=== PATIENT | female | born 1970 | race Caucasian/White ===

== ENCOUNTER 2018-02-23 03:13 | Emergency (ER) | payer MEDICAID ==
[~2018-02-23] VITALS: Ht 167.6 cm; Wt 59.9 kg
[2018-02-23] MEDS ORDERED: TIVICAY50 MG ORAL (03:23)
[2018-02-23] MEDS ORDERED: DESCOVY 200-251 EACH PO (03:23)
[2018-02-23 03:31] VITALS: BP 129/84
[2018-02-23] MEDS ORDERED: POLYTRIM OP SOL10 ML OPHTHALM (03:45)
--- NOTE | 2018-02-23 03:45 | Emergency Room Report ---
History of Present Illness General Chief Complaint: Eye Problems Source: Patient Present Illness HPI Is a 47-year-old female with no significant past medical history. She presents with chief complaint of right eye swelling. Onset today. Has drainage. No cough or congestion. No runny nose. [place] like a foreign body in it. Allergies: Coded Allergies: No Known Allergies (Unverified , 02/23/18) Patient History Past Medical History: see triage record, old chart reviewed Past Surgical History: other Pertinent Family History: none Social History: Denies: smoking Last Menstrual Period: 3 weeks ago Now: No Immunizations: other Reviewed Nursing Documentation: PMH: Agreed; PSxH: Agreed Nursing Documentation-PMH Past Medical History: No History, Except For Hx Asthma: No - PNA, HIV+ Review of Systems Eye: Reports: blurred vision, discharge; Denies: eye pain ENT: Denies: ear pain, nose congestion, throat swelling Respiratory: Denies: cough, shortness of breath Cardiovascular: Denies: chest pain, palpitations Gastrointestinal: Denies: abdominal pain, diarrhea, nausea, vomiting Musculoskeletal: Denies: back pain, joint pain Skin: Denies: rash Neurological: Denies: headache, numbness Endocrine: Denies: increased thirst, increased urine Hematologic/Lymphatic: Denies: easy bruising All Other Systems: negative except mentioned in HPI Physical Exam Vital Signs Date Time Temp Pulse Resp B/P (MAP) Pulse Ox O2 Delivery O2 Flow Rate FiO2 02/23/18 03:19 98.0 91 15 129/84 97 Room Air 98.1 vitals normal Sp02 EP Interpretation: reviewed, normal General Appearance: well appearing, no apparent distress, alert Head: normocephalic, atraumatic Eyes: right eye other - right eye: conjunctiva injected with yellowish dc. lower lid with mild edema. no stye; bilateral eye PERRL, bilateral eye EOMI ENT: hearing grossly normal, normal pharynx Neck: full range of motion, supple, no meningismus Respiratory: chest non-tender, lungs clear, normal breath sounds Cardiovascular #1: regular rate, rhythm, no murmur Gastrointestinal: normal bowel sounds, non tender, no mass, no organomegaly, no bruit, non-distended Musculoskeletal: back normal, gait/station normal, normal range of motion Psychiatric: mood/affect normal Skin: warm/dry Medical Decision Making Diagnostic Impression: Primary Impression: Conjunctivitis Qualified Codes: H10.31 - Unspecified acute conjunctivitis, right eye ER Course Patient presents with conjunctivae this. No evidence of foreign body. No evidence of corneal abrasion. Last Vital Signs Date Time Temp Pulse Resp B/P (MAP) Pulse Ox O2 Delivery O2 Flow Rate FiO2 02/23/18 03:19 98.0 91 15 129/84 97 Room Air 98.1 Status: unchanged Disposition: HOME, SELF-CARE Condition: Stable Scripts Polymyxin/Trimethoprim (Polytrim Eye Drops) 10 Ml Drops 2 DROP OPHTHALM THREE TIMES A DAY, #1 EA Instill in affected eye for 7 days Prov: TUNDE PIEDRA M.D. 02/23/18 Patient Instructions: Bacterial Conjunctivitis, [id number] Additional Instructions: Follow-up your doctor in 7 days. Clean eyes with baby shampoo. Return if symptom worsen. TUNDE PIEDRA M.D. Feb 23, 2018 03:45
== END 2018-02-23 03:48 | disposition home or self-care (01) ==
LOC: EMR 03:30
DX: H10.31 Unspecified acute conjunctivitis, right eye (principal)
CPT/HCPCS: 99283